=== PATIENT | female | born 1985 | race Caucasian/White ===

== ENCOUNTER 2019-04-29 16:56 | Inpatient (IN) | payer OTHER ==
[~2019-04-29] VITALS: Ht 177.8 cm; Wt 81.6 kg
[2019-04-29 17:10] VITALS: BP_SYST 123
[2019-04-29] MEDS ORDERED: LR 1,000 ML IV SCH (17:13)
[2019-04-29] MEDS ORDERED: NALBUPHINE HCL 10 MG/ML AMP IVP PRN (17:15)
[2019-04-29] MEDS ORDERED: DINOPROSTONE 10 MG SUPP VG ONE (17:15)
[2019-04-29] MEDS ORDERED: TERBUTALINE SULFATE 1 MG/ML VIAL SUBCUT ONE (17:15)
[2019-04-29] MEDS ORDERED: NALBUPHINE HCL 10 MG/ML AMP IM PRN (17:15)
[2019-04-29 17:34] LABS: BASOPHILS # (AUTO) 0.1 K/uL (0.0-0.2); BASOPHILS % (AUTO) 0.5 % (0.0-2.0); EOSINOPHILS # (AUTO) 0.1 K/uL (0.0-0.4); EOSINOPHILS % (AUTO) 1.1 % (0.0-4.0); HEMATOCRIT 36.9 % (36-48); HEMOGLOBIN 12.3 g/dL (12.0-16.0); LYMPHOCYTES # (AUTO) 2.2 K/uL (1.0-5.5); LYMPHOCYTES % (AUTO) 18.3 % (20.5-51.5); MEAN CORPUSCULAR HEMOGLOBIN 31 pg (27-31); MEAN CORPUSCULAR HGB CONC 33 % (32-36); MEAN CORPUSCULAR VOLUME 93 fL (79.0-98.0); MONOCYTES # (AUTO) 1.1 K/uL (0.0-1.0); NEUTROPHILS # (AUTO) 8.5 K/uL (1.8-7.7); NEUTROPHILS % (AUTO) 71.1 % (40.0-70.0); PLATELET COUNT (AUTO) 277 K/uL (130-430); RED BLOOD CELL COUNT(AUTO) 3.98 MIL/uL (4.2-6.2); RED CELL DISTRIBUTION WIDTH 14.2 % (9.0-15.0)
[2019-04-30] MEDS ORDERED: OXYTOCIN/0.9 % SODIUM CHLORIDE 1,000 ML IV ONE ×2 (05:51→17:54)
[2019-04-30] MEDS ORDERED: OXYTOCIN/0.9 % SODIUM CHLORIDE 1,000 ML IV SCH ×3 (05:51→17:54)
[2019-04-30] MEDS: LEVOTHYROXINE SODIUM 0.05 MG TABLET PO SCH (08:03)
[2019-04-30] MEDS ORDERED: fentaNYL CITRATE/PF 100 MCG/2 ML AMP ONE (11:49)
[2019-04-30] MEDS ORDERED: ROPIVACAINE HCL/PF 0.2% 200 ML ONE (11:49)
[2019-04-30] MEDS ORDERED: LR 500 ML IV ONE (13:25)
[2019-04-30] MEDS ORDERED: FENT2mCg/mL-ROPIVA0.2%/NS EPID 200 ML EP SCH (13:30)
[2019-04-30] MEDS ORDERED: OXYCODONE/ACETAMINOPHEN 5-325 TABLET PO PRN (18:00)
[2019-04-30] MEDS ORDERED: MEASLES,MUMPS&RUBELLA VACC/PF 12500 UNIT/0.5 ML VIAL SUBQ PRN (18:00)
[2019-04-30] MEDS ORDERED: HYDROCORTISONE 0.5%, 28.35 GM TOPICAL CREAM TP PRN (18:00)
[2019-04-30] MEDS ORDERED: DERMOPLAST SPRAY TP PRN (18:00)
[2019-04-30] MEDS ORDERED: LANOLIN 7 GM OINT. TP PRN (18:00)
[2019-04-30] MEDS ORDERED: SENNOSIDES/DOCUSATE SODIUM 1 TAB TABLET(SENOKOT-S) PO PRN (18:00)
[2019-04-30] MEDS ORDERED: WITCH HAZEL LEAF 1 MED.PAD MED.PAD TP PRN (18:00)
[2019-04-30] MEDS ORDERED: METHYLERGONOVINE MALEATE 0.2 MG TABLET PO PRN (18:00)
[2019-04-30] MEDS ORDERED: HYDROcodone/ACETAMIN 5-325 MG TAB (NORCO/ VICODIN) PO PRN (18:00)
[2019-04-30] MEDS ORDERED: ANUSOL 1 EA SUPP.RECT (PREPARATION H) RC PRN (18:00)
[2019-04-30] MEDS ORDERED: ACETAMINOPHEN 325 MG TABLET PO PRN (18:00)
[2019-04-30] MEDS: IBUPROFEN 600 MG TABLET PO PRN ×2 (18:16→23:39)
[2019-04-30] MEDS ORDERED: METOCLOPRAMIDE HCL 10 MG/2 ML VIAL IVP PRN (20:15)
[2019-04-30] MEDS ORDERED: ONDANSETRON HCL 4 MG/2 ML VIAL IVP PRN (20:15)
[2019-04-30] MEDS ORDERED: TEMAZEPAM 15 MG CAPSULE PO PRN (21:00)
[2019-04-30] MEDS: DOCUSATE SODIUM 100 MG CAPSULE PO PRN (23:39)
[2019-05-01] MEDS: IBUPROFEN 600 MG TABLET PO PRN ×2 (06:38→17:57)
[2019-05-01] MEDS: DOCUSATE SODIUM 100 MG CAPSULE PO PRN (06:39)
[2019-05-01 07:18] LABS: HEMATOCRIT 34.5 % (36-48); HEMOGLOBIN 11.6 g/dL (12.0-16.0)
[2019-05-01] MEDS: LEVOTHYROXINE SODIUM 0.05 MG TABLET PO SCH (08:02)
[2019-05-01] MEDS ORDERED: MINERAL OIL 30 ML UDC PO ONE (13:30)
== END 2019-05-01 18:30 | disposition home or self-care (01) | DRG 807 ==
LOC: SPU 16:56
PROVIDERS: ADMIT Obstetrics & Gynecology; ATTEND Obstetrics & Gynecology
PROC: 10E0XZZ Delivery of Products of Conception, External Approach (ICD-10-PCS; principal; 2019-04-30)
PROC: 3E0P7VZ Introduction of Hormone into Female Reproductive, Via Natural or Artificial Opening (ICD-10-PCS; 2019-04-30)
PROC: 3E0R3BZ Introduction of Anesthetic Agent into Spinal Canal, Percutaneous Approach (ICD-10-PCS; 2019-04-30)
PROC: 00HU33Z Insertion of Infusion Device into Spinal Canal, Percutaneous Approach (ICD-10-PCS; 2019-04-30)
PROC: 0HQ9XZZ Repair Perineum Skin, External Approach (ICD-10-PCS; 2019-04-30)
DX: O70.0 First degree perineal laceration during delivery (principal); Z37.0 Single live birth; O75.89 Other specified complications of labor and delivery; E06.3 Autoimmune thyroiditis; Z3A.39 39 weeks gestation of pregnancy; Z88.5 Allergy status to narcotic agent; Z88.1 Allergy status to other antibiotic agents
CPT/HCPCS: 36415; 81002-TC; 85018-TC; 85025; 86592; 86886; 86900; 86901; J2300; J2405; J2590; J3010; J7120